=== PATIENT | female | born 1950 | race Caucasian/White ===

== ENCOUNTER 2018-09-16 08:48 | Day surgery (SDC) ==
[2018-09-16] MEDS: TETRACAINE 0.5% UNIT-DOSE OP PRN ×2 (10:10→11:00)
[2018-09-16] MEDS: BETADINE OPTH PREP OP PRN ×2 (10:11→11:00)
[2018-09-16] MEDS: CYCLOGYL 2% OPTH OP PRN ×3 (10:12→10:22)
[2018-09-16 10:58] VITALS: TEMP 98.5
[2018-09-16] MEDS ORDERED: ZOFRAN 4 MG/2 ML IVP ONE (10:58)
[2018-09-16] MEDS ORDERED: SUBLIMAZE ONE (11:00)
[2018-09-16] MEDS ORDERED: VERSED ONE (11:00)
[2018-09-16] MEDS: LIDOCAINE 1%/PHENYLEPHRINE 1.5% BSS (SURGERY) INTRAOCULA ONE ×2 (11:08→11:10)
[2018-09-16] MEDS: DEX-MOXI-KETOR OPTH INJ 1/0.5/0.4 MG/ML IO ONE ×2 (11:08→11:10)
[2018-09-16] MEDS: BSS WITH EPINEPHRINE OP ONE ×2 (11:08→11:10)
[2018-09-22 12:48] VITALS: BP 126/64
== END 2018-09-16 12:25 | disposition home or self-care (01) ==
LOC: SURG 08:48
PROVIDERS: ATTEND Ophthalmology
DX: H25.12 Age-related nuclear cataract, left eye (principal)